=== PATIENT | male | born 1970 | race Caucasian/White ===

== ENCOUNTER 2022-04-29 19:01 | Emergency (ER) | payer OTHER ==
[~2022-04-29 19:01] MED LIST: MORPHINE SULFAT15 M1 PO
== END 2022-04-29 19:23 | disposition left against medical advice (07) ==
LOC: ER1 19:01
DX: Z53.21 Procedure and treatment not carried out due to patient leaving prior to being seen by health care provider (principal)
CPT/HCPCS: 93005